=== PATIENT | female | born 1950 | race Caucasian/White ===

== ENCOUNTER 2024-12-14 13:06 | Inpatient (IN) | payer MEDICARE ==
[~2024-12-14] VITALS: Ht 167.6 cm; Wt 61.4 kg
[2024-12-14 15:41] LABS: BASOPHILS % (AUTO) 1.1 % (0.0-2.0); EOSINOPHILS % (AUTO) 0.4 % (1.0-6.0); HEMATOCRIT 46.4 % (36-46); HEMOGLOBIN 15.3 g/dL (12.0-16.0); LYMPHOCYTES # (AUTO) 2.9 K/uL (1.0-4.8); LYMPHOCYTES % (AUTO) 28.1 % (22.0-44.0); MEAN CORPUSCULAR HEMOGLOBIN 28.3 pg (26.0-34.0); MEAN CORPUSCULAR HGB CONC 33.1 G/dL (31.0-37.0); MEAN CORPUSCULAR VOLUME 86 fL (80-100); MONOCYTES # (AUTO) 0.7 K/uL (0.1-1.0); MONOCYTES % (AUTO) 6.4 % (2.0-9.0); NEUTROPHILS # (AUTO) 6.6 K/uL (1.8-7.7); PLATELET COUNT (AUTO) 285 K/uL (150-450); RED BLOOD CELL COUNT(AUTO) 5.42 MIL/uL (4.00-5.20); RED CELL DISTRIBUTION WIDTH 14.2 % (11.5-14.5); WHITE BLOOD COUNT (AUTO) 10.3 K/uL (4.5-11.0)
[2024-12-14 15:48] LABS: APPEARANCE,URINE CLEAR (CLEAR); BILIRUBIN,URINE NEGATIVE (NEGATIVE); COLOR,URINE YELLOW (YELLOW); GLUCOSE, URINE (UA) NEGATIVE (NEGATIVE); KETONES,URINE NEGATIVE (NEGATIVE); LEUKOCYTE ESTERASE ,URINE NEGATIVE (NEGATIVE); NITRATE,URINE NEGATIVE (NEGATIVE); OCCULT BLOOD,URINE NEGATIVE (NEGATIVE); PH,URINE 6.5 (5.0-8.0); PH,URINE DRUG SCREEN 6.5 (5.0-8.0); PROTEIN,URINE TRACE mg/dL (NEGATIVE); SPECIFIC GRAVITIY, URINE 1.027 (1.003-1.030); UROBILINOGEN,URINE <=1.0 mg/dL (<=1.0)
[2024-12-14 15:56] LABS: ALCOHOL, URINE DRUG SCREEN NEGATIVE (NEGATIVE); AMPHET/METH SCREEN,URINE NEGATIVE (NEGATIVE); BARBITURATE SCREEN, URINE NEGATIVE (NEGATIVE); BENZODIAZEPINES SCREEN,URINE NEGATIVE (NEGATIVE); CANNABINOID SCREEN,URINE NEGATIVE (NEGATIVE); COCAINE SCREEN,URINE NEGATIVE (NEGATIVE); METHADONE SCREEN, URINE NEGATIVE (NEGATIVE); OPIATE SCREEN,URINE NEGATIVE (NEGATIVE); PHENCYCLIDINE SCREEN,URINE NEGATIVE (NEGATIVE)
[2024-12-14 15:59] LABS: ANION GAP 11 mmol/L (8-16); CALCIUM, TOTAL 9.4 mg/dL (8.8-10.5); CARBON DIOXIDE 26 mmol/L (22-29); CHLORIDE 107 mmol/L (98-107); CREATININE 0.53 mg/dL (0.60-1.30); GLOMERULAR FILTR. RATE CALC > 60 mL/min (>60); GLUCOSE,RANDOM 79 mg/dL (70-110); POTASSIUM 4.2 mmol/L (3.5-5.1); SODIUM SERUM 144 mmol/L (136-145); UREA NITROGEN, BLOOD 22 mg/dL (7-18)
[2024-12-14 16:00] LABS: ALCOHOL, BLOOD (SERUM) < 3 mg/dL (0-10)
[2024-12-14] MEDS: DiphenhydrAMINE HCL 50 MG/ML VIAL IM ONE (19:41)
[2024-12-14] MEDS: LORazepam 2 MG/ML VIAL IM ONE (19:41)
[2024-12-14] MEDS: HALOPERIDOL LACTATE 5 MG/ML VIAL IM ONE (19:43)
[2024-12-14] MEDS ORDERED: LORazepam 2 MG TABLET PO PRN (21:00)
[2024-12-14] MEDS ORDERED: ZOLPIDEM TARTRATE 10 MG TABLET PO PRN (21:00)
[2024-12-14] MEDS ORDERED: QUEtiapine FUMARATE 100 MG TABLET PO PRN (21:00)
[2024-12-14 21:27] LABS: COVID AG,FIA SOURCE NASAL SWAB
[2024-12-14 21:48] LABS: SARS-COV2 (COVID) ANTIGEN,FIA Negative (Negative)
[2024-12-15] MEDS ORDERED: INSU100I47 SQ (09:22)
[2024-12-15] MEDS ORDERED: CLON0.5T4 PO (09:22)
[2024-12-15] MEDS ORDERED: DIVA-85 PO (09:22)
[2024-12-15] MEDS ORDERED: QUET25TA36 PO (09:22)
[2024-12-15] MEDS ORDERED: METF-1211 PO (09:22)
[2024-12-15 09:40] LABS: GLUCOMETER DEV NAME(LOC) ER.7; GLUCOSE,POINT OF CARE 93 MG/DL (70-110)
[2024-12-15 14:01] VITALS: BP 102/60; PULSE 70; RESP 18; TEMP 98.4; O2SAT 96
[2024-12-16 08:37] VITALS: BP 113/60; PULSE 72; RESP 17; TEMP 97.5; O2SAT 95
[2024-12-16] MEDS: DIVALPROEX SODIUM 250 MG ER TABLET PO SCH (11:15)
[2024-12-16] MEDS: QUEtiapine FUMARATE 100 MG TABLET PO SCH (11:15)
[2024-12-16] MEDS: ClonazePAM 0.5 MG TABLET PO SCH (20:39)
[2024-12-16 21:20] VITALS: RESP 17; TEMP 97.8
[2024-12-17] MEDS: INFLUENZA VIRUS VACCINE TVS (6MO+) 2024-25/PF 45 MCG/0.5 ML SYRINGE IM. ONE (09:23)
[2024-12-17 10:55] VITALS: BP 109/75; PULSE 73; RESP 18; TEMP 98
[2024-12-17 19:31] VITALS: BP 113/66; PULSE 106; RESP 19; TEMP 97.2; O2SAT 87
[2024-12-17] MEDS: QUEtiapine FUMARATE 200 MG TABLET PO SCH (21:00)
[2024-12-17 21:05] LABS: GLUCOMETER DEV NAME(LOC) BV2X.3; GLUCOSE,POINT OF CARE 143 MG/DL (70-110)
[2024-12-18] VITALS (9 sets, daily range): BP systolic 117–130; BP diastolic 56–70; PULSE 63–83; RESP 16–18; TEMP 97.5–98.2; O2SAT 95–99
[2024-12-18] MEDS: MetFORMIN HCL 500 MG TABLET PO SCH (06:27)
[2024-12-18] MEDS: QUEtiapine FUMARATE 100 MG TABLET PO SCH (09:00)
[2024-12-18] MEDS: LACTULOSE 20 GM/30 ML SOLUTION UDCUP PO SCH (09:00)
[2024-12-18] MEDS: MULTIVITAMINS WITH MINERALS, THERAPEUTIC TABLET PO SCH (09:00)
[2024-12-19 08:15] VITALS: BP 106/54; PULSE 81; RESP 16; TEMP 91.2; O2SAT 96
[2024-12-19 20:00] VITALS: BP 108/60; PULSE 68; RESP 18; TEMP 97.2; O2SAT 95
[2024-12-19 21:56] VITALS: BP 108/60; PULSE 68; RESP 18; TEMP 97.2; O2SAT 95
[2024-12-20 08:37] VITALS: BP 110/61; PULSE 61; RESP 16; TEMP 97.4; O2SAT 98
[2024-12-20 13:24] VITALS: BP 102/60; PULSE 72; RESP 17; TEMP 97.3
[2024-12-20 21:15] VITALS: RESP 18
[2024-12-21 08:31] VITALS: BP 113/58; PULSE 94; RESP 19; TEMP 97.9; O2SAT 96
[2024-12-21] MEDS: HALOPERIDOL LACTATE 5 MG/ML VIAL IM PRN (10:07)
[2024-12-21 20:00] VITALS: BP 100/60; PULSE 79; RESP 17; TEMP 97.5; O2SAT 98
[2024-12-21 20:17] VITALS: BP 100/60; PULSE 79; RESP 17; TEMP 97.5; O2SAT 98
[2024-12-21 22:00] VITALS: BP 140/86; PULSE 96; RESP 19; TEMP 97.6; O2SAT 97
[2024-12-21 23:55] VITALS: RESP 18
[2024-12-22 08:35] VITALS: BP 130/71; PULSE 89; RESP 18; TEMP 98; O2SAT 96
[2024-12-22 18:13] VITALS: BP 106/56; PULSE 84; RESP 18; TEMP 97.2; O2SAT 98
[2024-12-22 20:48] VITALS: BP 118/59; PULSE 86; RESP 19; TEMP 97.9; O2SAT 99
[2024-12-22 21:03] VITALS: RESP 18
[2024-12-23 08:29] VITALS: BP 101/62; PULSE 70; RESP 17; TEMP 97.4; O2SAT 95
[2024-12-23 11:50] VITALS: RESP 18
[2024-12-23 20:26] VITALS: BP 131/68; PULSE 67; RESP 16; TEMP 97.9; O2SAT 95
[2024-12-24 08:23] VITALS: BP 108/62; PULSE 65; RESP 16; TEMP 97.5; O2SAT 97
[2024-12-24] MEDS: HALOPERIDOL LACTATE 5 MG/ML VIAL IM PRN (20:42)
[2024-12-24 20:53] VITALS: BP 104/65; PULSE 86; RESP 18; TEMP 98.7; O2SAT 95
[2024-12-25 08:28] VITALS: RESP 17; TEMP 91.9
[2024-12-25 22:50] VITALS: RESP 18
[2024-12-26 16:46] VITALS: BP 144/70; PULSE 75; RESP 18; TEMP 97.5; O2SAT 97
[2024-12-26 20:26] VITALS: BP 116/76; PULSE 98; RESP 18; TEMP 97.2; O2SAT 98
[2024-12-27 08:30] VITALS: BP 140/80; PULSE 84; RESP 17; TEMP 97.3; O2SAT 98
[2024-12-27 20:26] VITALS: BP 124/63; PULSE 96; RESP 18; TEMP 97.3; O2SAT 96
[2024-12-28 08:30] VITALS: BP 110/60; PULSE 69; RESP 17; TEMP 97.7; O2SAT 98
[2024-12-29 08:35] VITALS: BP 106/61; PULSE 70; RESP 17; TEMP 97.5; O2SAT 98
[2024-12-29 20:00] VITALS: BP 107/60; PULSE 103; RESP 17; TEMP 97.4; O2SAT 98
[2024-12-30 08:57] VITALS: BP 118/59; PULSE 62; RESP 16; TEMP 97.3; O2SAT 99
[2024-12-30 09:15] VITALS: BP 118/62; PULSE 64; RESP 16; O2SAT 98
[2024-12-30 20:46] VITALS: RESP 18
[2024-12-31 08:30] VITALS: BP 114/56; PULSE 64; RESP 16; TEMP 97.6; O2SAT 98
[2024-12-31 22:55] VITALS: RESP 16
[2025-01-01 08:15] VITALS: BP 109/47; PULSE 75; RESP 16; TEMP 98; O2SAT 97
[2025-01-01 20:20] VITALS: BP 112/61; PULSE 68; RESP 18; TEMP 97.9
[2025-01-02 10:05] VITALS: BP 152/77; PULSE 99; RESP 18; O2SAT 100
[2025-01-02 13:24] VITALS: RESP 18
== END 2025-01-02 21:30 | disposition short-term general hospital (02) | DRG 885 ==
LOC: EMS 13:06 → B2X 12-15 08:54
PROVIDERS: ADMIT Psychiatry & Neurology Psychiatry; ATTEND Psychiatry & Neurology Psychiatry
PROC: GZHZZZZ Group Psychotherapy (ICD-10-PCS; principal; 2024-12-16)
DX: F20.0 Paranoid schizophrenia (principal); N39.0 Urinary tract infection, site not specified; I10 Essential (primary) hypertension; K21.9 Gastro-esophageal reflux disease without esophagitis; G47.00 Insomnia, unspecified; Z20.822 Contact with and (suspected) exposure to COVID-19; F41.9 Anxiety disorder, unspecified; K59.00 Constipation, unspecified; E11.9 Type 2 diabetes mellitus without complications; E86.0 Dehydration; Z79.899 Other long term (current) drug therapy
CPT/HCPCS: 80048; 80307; 81003; 82962; 85025; 87081; 99285; G0480; J1200; J1630; J2060

== ENCOUNTER 2025-01-02 11:35 | Inpatient (IN) | payer MEDICARE ==
[~2025-01-02] VITALS: Ht 167.6 cm; Wt 58.4 kg
[~2025-01-02 11:35] MED LIST: CLON0.5T4 PO; DIVA-85 PO; INSU100I47 SQ; METF-1211 PO; QUET25TA36 PO
[2025-01-02 13:05] LABS: ANION GAP 9 mmol/L (8-16); CALCIUM, TOTAL 9.8 mg/dL (8.8-10.5); CARBON DIOXIDE 29 mmol/L (22-29); CHLORIDE 103 mmol/L (98-107); CREATININE 0.65 mg/dL (0.60-1.30); GLOMERULAR FILTR. RATE CALC > 60 mL/min (>60); GLUCOSE,RANDOM 107 mg/dL (70-110); POTASSIUM 4.5 mmol/L (3.5-5.1); SODIUM SERUM 141 mmol/L (136-145); UREA NITROGEN, BLOOD 29 mg/dL (7-18)
[2025-01-02 13:14] LABS: BASOPHILS % (AUTO) 0.6 % (0.0-2.0); EOSINOPHILS % (AUTO) 0.1 % (1.0-6.0); HEMATOCRIT 46.4 % (36-46); HEMOGLOBIN 15.4 g/dL (12.0-16.0); LYMPHOCYTES # (AUTO) 2.8 K/uL (1.0-4.8); LYMPHOCYTES % (AUTO) 17.2 % (22.0-44.0); MEAN CORPUSCULAR HEMOGLOBIN 28.7 pg (26.0-34.0); MEAN CORPUSCULAR HGB CONC 33.1 G/dL (31.0-37.0); MEAN CORPUSCULAR VOLUME 87 fL (80-100); MONOCYTES # (AUTO) 1.1 K/uL (0.1-1.0); MONOCYTES % (AUTO) 6.8 % (2.0-9.0); NEUTROPHILS # (AUTO) 12.4 K/uL (1.8-7.7); NEUTROPHILS % (AUTO) 75.3 % (40.0-70.0); PLATELET COUNT (AUTO) 397 K/uL (150-450); RED BLOOD CELL COUNT(AUTO) 5.34 MIL/uL (4.00-5.20); WHITE BLOOD COUNT (AUTO) 16.5 K/uL (4.5-11.0)
[2025-01-02 13:43] LABS: ALCOHOL, BLOOD (SERUM) < 3 mg/dL (0-10)
[2025-01-02 15:55] LABS: APPEARANCE,URINE CLEAR (CLEAR); BILIRUBIN,URINE NEGATIVE (NEGATIVE); COLOR,URINE YELLOW (YELLOW); GLUCOSE, URINE (UA) NEGATIVE (NEGATIVE); KETONES,URINE NEGATIVE (NEGATIVE); LEUKOCYTE ESTERASE ,URINE SMALL (NEGATIVE); NITRATE,URINE NEGATIVE (NEGATIVE); OCCULT BLOOD,URINE NEGATIVE (NEGATIVE); PH,URINE 5.5 (5.0-8.0); PH,URINE DRUG SCREEN 5.5 (5.0-8.0); PROTEIN,URINE TRACE mg/dL (NEGATIVE); SPECIFIC GRAVITIY, URINE 1.028 (1.003-1.030); UROBILINOGEN,URINE <=1.0 mg/dL (<=1.0)
[2025-01-02 16:02] LABS: ALCOHOL, URINE DRUG SCREEN NEGATIVE (NEGATIVE); AMPHET/METH SCREEN,URINE NEGATIVE (NEGATIVE); BARBITURATE SCREEN, URINE NEGATIVE (NEGATIVE); BENZODIAZEPINES SCREEN,URINE NEGATIVE (NEGATIVE); CANNABINOID SCREEN,URINE NEGATIVE (NEGATIVE); COCAINE SCREEN,URINE NEGATIVE (NEGATIVE); METHADONE SCREEN, URINE NEGATIVE (NEGATIVE); OPIATE SCREEN,URINE NEGATIVE (NEGATIVE); PHENCYCLIDINE SCREEN,URINE NEGATIVE (NEGATIVE)
[2025-01-02 16:22] LABS: BACTERIA,URINE Few /HPF (None Seen); RBC,URINE 0-2 /HPF (0-2); SQUAMOUS EPITHELIAL CELL,UR Few /LPF (None Seen)
[2025-01-02] MEDS ORDERED: CloNIDine HCL 0.1 MG TABLET PO PRN (17:45)
[2025-01-02] MEDS: CefTRIAXone 1 GM/DEXTROSE 50 ML IV ONE (19:46)
[2025-01-02 21:30] VITALS: BP 146/78; PULSE 65; RESP 18; TEMP 98.4; O2SAT 98
[2025-01-02] MEDS: HEPARIN SODIUM,PORCINE 5,000 UNITS/ML VIAL SQ SCH (23:21)
[2025-01-02] MEDS: DOCUSATE SODIUM 100 MG CAPSULE PO SCH (23:21)
[2025-01-02] MEDS: AmLODIPine BESYLATE 5 MG TABLET PO SCH (23:21)
[2025-01-03 04:29] VITALS: BP 109/69; PULSE 64; RESP 18; TEMP 97.8; O2SAT 98
[2025-01-03] MEDS: FAMOTIDINE 20 MG TABLET PO SCH (08:23)
[2025-01-03 09:04] VITALS: BP 105/50; PULSE 62; RESP 17; TEMP 97.6; O2SAT 98
[2025-01-03] MEDS: CefTRIAXone 1 GM/DEXTROSE 50 ML IV SCH (18:28)
[2025-01-03] MEDS ORDERED: SODIUM CHLORIDE 0.9% 500 ML IV ONE (18:32)
[2025-01-03 20:00] VITALS: BP 111/57; PULSE 66; RESP 18; TEMP 97.9; O2SAT 95
[2025-01-04 03:50] VITALS: BP 103/44; PULSE 55; RESP 18; TEMP 97.4; O2SAT 99
[2025-01-04 07:13] LABS: ANION GAP 5 mmol/L (8-16); CALCIUM, TOTAL 8.6 mg/dL (8.8-10.5); CARBON DIOXIDE 30 mmol/L (22-29); CHLORIDE 106 mmol/L (98-107); CREATININE 0.47 mg/dL (0.60-1.30); GLOMERULAR FILTR. RATE CALC > 60 mL/min (>60); GLUCOSE,RANDOM 79 mg/dL (70-110); POTASSIUM 4.2 mmol/L (3.5-5.1); SODIUM SERUM 141 mmol/L (136-145); UREA NITROGEN, BLOOD 19 mg/dL (7-18)
[2025-01-04 07:47] LABS: BASOPHILS % (AUTO) 0.6 % (0.0-2.0); EOSINOPHILS % (AUTO) 1.5 % (1.0-6.0); HEMATOCRIT 44.6 % (36-46); HEMOGLOBIN 14.8 g/dL (12.0-16.0); LYMPHOCYTES # (AUTO) 2.2 K/uL (1.0-4.8); LYMPHOCYTES % (AUTO) 27.6 % (22.0-44.0); MEAN CORPUSCULAR HGB CONC 33.2 G/dL (31.0-37.0); MEAN CORPUSCULAR VOLUME 87 fL (80-100); MONOCYTES # (AUTO) 0.7 K/uL (0.1-1.0); MONOCYTES % (AUTO) 8.6 % (2.0-9.0); NEUTROPHILS # (AUTO) 4.9 K/uL (1.8-7.7); NEUTROPHILS % (AUTO) 61.7 % (40.0-70.0); PLATELET COUNT (AUTO) 304 K/uL (150-450); RED BLOOD CELL COUNT(AUTO) 5.11 MIL/uL (4.00-5.20); RED CELL DISTRIBUTION WIDTH 14.1 % (11.5-14.5)
[2025-01-04] MEDS: MULTIVITAMINS WITH MINERALS, THERAPEUTIC TABLET PO SCH (11:26)
[2025-01-04] MEDS: DIVALPROEX SODIUM 250 MG DR TABLET PO SCH (15:23)
[2025-01-04] MEDS: QUEtiapine FUMARATE 100 MG TABLET PO SCH (15:23)
[2025-01-04 16:38] VITALS: BP 122/49; PULSE 59; RESP 18; TEMP 97.8; O2SAT 96
[2025-01-04 21:00] VITALS: BP 141/51; PULSE 60; RESP 18; O2SAT 97
[2025-01-04] MEDS: QUEtiapine FUMARATE 200 MG TABLET PO SCH (21:00)
[2025-01-05 06:29] VITALS: BP 123/58; PULSE 63; RESP 18; TEMP 97.5; O2SAT 98
[2025-01-05 08:00] VITALS: O2SAT 0
[2025-01-05 21:25] VITALS: BP 136/64; PULSE 52; RESP 18
[2025-01-06 05:15] VITALS: BP 119/80; PULSE 57; RESP 18; TEMP 97.8; O2SAT 97
[2025-01-06] MEDS: HALOPERIDOL LACTATE 5 MG/ML VIAL IM ONE (19:00)
[2025-01-06 19:20] VITALS: BP 102/73; PULSE 75; RESP 20; TEMP 97.5; O2SAT 97
[2025-01-07] MEDS: ACETAMINOPHEN 325 MG TABLET PO PRN (03:07)
[2025-01-07 03:37] VITALS: BP 134/74; PULSE 89; RESP 20; TEMP 97.7; O2SAT 95
[2025-01-07 07:00] LABS: GLUCOMETER DEV NAME(LOC) 6S.2; GLUCOSE,POINT OF CARE 102 MG/DL (70-110)
[2025-01-07 08:14] VITALS: BP 128/72; PULSE 92; RESP 18; TEMP 97.8; O2SAT 96
[2025-01-07 13:29] LABS: COVID AG,FIA SOURCE NASAL SWAB
[2025-01-07 14:35] LABS: SARS-COV2 (COVID) ANTIGEN,FIA Negative (Negative)
[2025-01-07 19:55] VITALS: BP 124/57; PULSE 67; RESP 18; TEMP 97.9; O2SAT 97
[2025-01-08 04:40] VITALS: BP 112/65; PULSE 61; RESP 18; TEMP 97.5; O2SAT 98
[2025-01-08] MEDS: MAGNESIUM HYDROXIDE SUSPENSION 30 ML UDCUP PO PRN (05:56)
[2025-01-08 07:24] VITALS: BP 122/68; PULSE 65; RESP 18; TEMP 97.9; O2SAT 96
[2025-01-08 15:11] VITALS: BP 126/62; PULSE 64; RESP 18; TEMP 97.6; O2SAT 97
[2025-01-08] MEDS ORDERED: SODIUM CHLORIDE 0.9% 250 ML IV ONE (20:13)
[2025-01-09 04:16] VITALS: BP 116/57; PULSE 57; RESP 18; TEMP 97.3; O2SAT 95
[2025-01-09 09:58] VITALS: BP 112/47; PULSE 51; RESP 18; TEMP 97.6; O2SAT 96
[2025-01-09 20:38] LABS: COVID AG,FIA SOURCE NASAL SWAB
[2025-01-09 20:54] LABS: SARS-COV2 (COVID) ANTIGEN,FIA Negative (Negative)
== END 2025-01-10 02:15 | DRG 91 ==
LOC: EMS 11:35 → EDH 19:30 → 6N 21:30
PROVIDERS: ADMIT Internal Medicine; ATTEND Internal Medicine
PROC: GZ56ZZZ Individual Psychotherapy, Supportive (ICD-10-PCS; principal; 2025-01-04)
DX: G92.9 Unspecified toxic encephalopathy (principal); E43 Unspecified severe protein-calorie malnutrition; N39.0 Urinary tract infection, site not specified; R64 Cachexia; E44.0 Moderate protein-calorie malnutrition; F20.0 Paranoid schizophrenia; Z20.822 Contact with and (suspected) exposure to COVID-19; I10 Essential (primary) hypertension; R62.7 Adult failure to thrive; E11.9 Type 2 diabetes mellitus without complications; Z68.20 Body mass index [BMI] 20.0-20.9, adult
CPT/HCPCS: 51701; 80048; 80164; 80307; 81001; 82962; 85025; 87086; 99285; G0480; J0696; J1630; J1644; J7040; J7050

== ENCOUNTER 2025-01-09 19:55 | Inpatient (IN) | payer MEDICARE, MEDICAID ==
[~2025-01-09] VITALS: Ht 167.6 cm; Wt 56.2 kg
[2025-01-09] MEDS ORDERED: LORazepam 2 MG TABLET PO PRN (21:45)
[2025-01-09] MEDS ORDERED: ZOLPIDEM TARTRATE 10 MG TABLET PO PRN (21:45)
[2025-01-09] MEDS ORDERED: HALOPERIDOL 5 MG TABLET PO PRN (21:45)
[2025-01-10 04:03] VITALS: BP 108/56; PULSE 64; RESP 16; TEMP 97.6; O2SAT 97
[2025-01-10] MEDS ORDERED: ACETAMINOPHEN 325 MG TABLET PO PRN (08:00)
[2025-01-10] MEDS ORDERED: ONDANSETRON 4 MG TABLET PO PRN (08:00)
[2025-01-10] MEDS ORDERED: IBUPROFEN 600 MG TABLET PO PRN (08:00)
[2025-01-10] MEDS ORDERED: BACITRACIN 28 GM OINTMENT TP PRN (08:00)
[2025-01-10] MEDS ORDERED: MAG HYDROX/ALUMINUM HYD/SIMETH ES 30 ML SUSPENSION UDCUP PO PRN (08:00)
[2025-01-10] MEDS ORDERED: BENZOCAINE/MENTHOL [CEPACOL] LOZENGE PO PRN (08:00)
[2025-01-10] MEDS ORDERED: CloNIDine HCL 0.1 MG TABLET PO PRN (08:00)
[2025-01-10] MEDS ORDERED: LOPERAMIDE HCL 2 MG CAPSULE PO PRN (08:00)
[2025-01-10] MEDS ORDERED: PETROLATUM,WHITE 28 GM JELLY TP PRN (08:00)
[2025-01-10] MEDS ORDERED: ALBUTEROL SULFATE HFA 90 MCG/PUFF 8 GM INHALER IH PRN (08:00)
[2025-01-10] MEDS ORDERED: DOCUSATE SODIUM 100 MG CAPSULE PO PRN (08:00)
[2025-01-10] MEDS ORDERED: OMEPRAZOLE 20 MG CAPSULE PO PRN (08:00)
[2025-01-10 13:47] VITALS: RESP 18
[2025-01-10 20:12] VITALS: BP 103/61; PULSE 68; RESP 16; TEMP 98; O2SAT 97
[2025-01-11 09:13] LABS: HEMOGLOBIN A1C 5.2 % (3.8-5.6)
[2025-01-11 09:31] LABS: CHOL/HDL RATIO 3.4 (3.9-5.7); THYROID STIMULATING HORMONE 0.96 uIU/mL (0.36-3.74)
[2025-01-11] MEDS: RisperiDONE 1 MG TABLET PO SCH (17:00)
[2025-01-11 20:54] VITALS: BP 94/61; PULSE 66; RESP 18; TEMP 97.8; O2SAT 96
[2025-01-12 09:00] VITALS: RESP 18
[2025-01-12 20:05] VITALS: RESP 18
[2025-01-13 08:12] VITALS: BP 103/60; PULSE 64; RESP 17; TEMP 97.8; O2SAT 98
[2025-01-13 20:10] VITALS: BP 104/55; PULSE 62; RESP 16; TEMP 98.2; O2SAT 97
[2025-01-14] MEDS: HALOPERIDOL LACTATE 5 MG/ML VIAL IM PRN (01:12)
[2025-01-14 08:08] VITALS: BP 134/63; PULSE 70; RESP 16; TEMP 97.7; O2SAT 96
[2025-01-14] MEDS: MIRTAZAPINE 15 MG TABLET PO SCH (21:00)
[2025-01-15] MEDS: LORazepam 2 MG/ML VIAL IM ONE (11:46)
[2025-01-15] MEDS: DiphenhydrAMINE HCL 50 MG/ML VIAL IM ONE (11:48)
[2025-01-15] MEDS: HALOPERIDOL LACTATE 5 MG/ML VIAL IM ONE (11:48)
[2025-01-15 20:00] VITALS: BP 132/56; PULSE 70; RESP 18; TEMP 97.7; O2SAT 97
[2025-01-16 08:13] VITALS: TEMP 97.7
[2025-01-16 23:01] VITALS: PULSE 78; RESP 18; TEMP 98.6
[2025-01-17 08:31] VITALS: RESP 16
[2025-01-18 08:06] VITALS: BP 149/61; PULSE 72; RESP 17; TEMP 97.2; O2SAT 98
[2025-01-20 20:40] VITALS: BP 137/61; PULSE 71; RESP 16; RESP 17; TEMP 97.3; O2SAT 96
[2025-01-20 20:55] VITALS: BP 133/59; PULSE 71; RESP 17; TEMP 96.9; O2SAT 97
[2025-01-22 08:05] VITALS: BP 121/52; PULSE 76; RESP 18; TEMP 97.1; O2SAT 96
[2025-01-22 20:32] VITALS: RESP 18; TEMP 97.8
[2025-01-23 09:45] VITALS: RESP 20
[2025-01-23] MEDS: HALOPERIDOL LACTATE 5 MG/ML VIAL IM PRN (18:16)
[2025-01-24 08:15] VITALS: RESP 16
[2025-01-26 08:25] VITALS: RESP 18
[2025-01-26] MEDS: RisperiDONE 2 MG TABLET PO SCH (17:00)
[2025-01-26 20:03] VITALS: BP 107/62; PULSE 83; RESP 17; TEMP 98.1; O2SAT 95
[2025-01-27 09:19] VITALS: RESP 16
[2025-01-27 20:14] VITALS: RESP 16
[2025-01-28 08:09] VITALS: RESP 17
[2025-01-28] MEDS: MULTIVITAMINS WITH MINERALS, THERAPEUTIC TABLET PO SCH (09:00)
[2025-01-29 08:49] VITALS: PULSE 85; RESP 16; TEMP 97.2; O2SAT 97
[2025-01-30 08:41] VITALS: RESP 17
[2025-01-30 20:17] VITALS: BP 130/69; PULSE 91; RESP 18; TEMP 98.1; O2SAT 97
[2025-01-31 08:16] VITALS: BP 127/54; PULSE 81; RESP 18; TEMP 97.4; O2SAT 98
[2025-02-01 08:08] VITALS: BP 136/60; PULSE 60; RESP 16; TEMP 97.7; O2SAT 96
[2025-02-01 20:04] VITALS: RESP 17
[2025-02-02 08:02] VITALS: RESP 16
[2025-02-02 20:22] VITALS: RESP 19
[2025-02-03 08:17] VITALS: BP 129/60; PULSE 66; RESP 16; TEMP 97.6; O2SAT 96
[2025-02-03] MEDS: RisperiDONE 2 MG TABLET PO SCH (17:15)
[2025-02-03 20:28] VITALS: RESP 17
[2025-02-04 08:39] VITALS: BP 139/61; PULSE 69; RESP 18; TEMP 97.9; O2SAT 97
[2025-02-04 20:13] VITALS: RESP 16; TEMP 98.2
[2025-02-05 08:37] VITALS: BP 140/64; PULSE 82; RESP 16; TEMP 97.6
[2025-02-05 21:00] VITALS: RESP 18; TEMP 97.8
[2025-02-06 08:00] VITALS: PULSE 87; RESP 16; TEMP 97.5
[2025-02-06 20:11] VITALS: RESP 16; TEMP 97.2
[2025-02-07 07:47] VITALS: BP 139/60; PULSE 72; RESP 17; TEMP 97.1; O2SAT 98
[2025-02-07 20:07] VITALS: BP 129/74; PULSE 78; RESP 16; TEMP 97.7
[2025-02-08 08:06] VITALS: BP 129/61; PULSE 77; RESP 16; TEMP 98.2; O2SAT 99
[2025-02-08] MEDS ORDERED: TUBERCULIN, PURIFIED PROTEIN DERIVATIVE 5 TU/0.1 ML SYRINGE ID ONE (09:30)
[2025-02-08] MEDS: TUBERCULIN, PURIFIED PROTEIN DERIVATIVE 5 TU/0.1 ML SYRINGE ID ONE (15:48)
[2025-02-08] MEDS ORDERED: LORazepam 2 MG/ML VIAL ONE (17:23)
[2025-02-08] MEDS ORDERED: DiphenhydrAMINE HCL 50 MG/ML VIAL ONE (17:24)
[2025-02-08] MEDS: DiphenhydrAMINE HCL 50 MG/ML VIAL IM ONE (17:54)
[2025-02-08] MEDS: LORazepam 2 MG/ML VIAL IM ONE (17:54)
[2025-02-08] MEDS: HALOPERIDOL LACTATE 5 MG/ML VIAL IM ONE (17:54)
[2025-02-08 20:12] VITALS: BP 116/56; PULSE 100; RESP 18; TEMP 97.7
[2025-02-08] MEDS ORDERED: HALOPERIDOL LACTATE 5 MG/ML VIAL IM SCH (21:00)
[2025-02-09 08:03] VITALS: BP 110/70; PULSE 69; RESP 16; TEMP 97.3; O2SAT 100
[2025-02-09 20:04] VITALS: BP 113/56; PULSE 79; RESP 18; TEMP 97.8; O2SAT 100
[2025-02-10 08:18] VITALS: BP 111/60; PULSE 64; RESP 17; TEMP 97.7; O2SAT 96
[2025-02-10 08:20] VITALS: BP 111/60; PULSE 64; RESP 17; TEMP 97.7; O2SAT 96
[2025-02-10 20:00] VITALS: RESP 16
[2025-02-11 08:27] VITALS: BP 124/60; PULSE 67; RESP 17; TEMP 97.2; O2SAT 98
[2025-02-11 20:28] VITALS: BP 115/61; PULSE 62; RESP 18; TEMP 97.2; O2SAT 99
[2025-02-12 08:33] VITALS: BP 150/75; PULSE 69; RESP 18; TEMP 97.7; O2SAT 97
[2025-02-12 20:07] VITALS: BP 141/79; PULSE 104; RESP 18; TEMP 97.9; O2SAT 96
[2025-02-12 22:18] VITALS: BP 159/56; PULSE 120; RESP 20; TEMP 96.4; O2SAT 97
[2025-02-13 02:15] VITALS: BP 136/54; PULSE 100; RESP 16; TEMP 96.2; O2SAT 96
[2025-02-13 03:30] VITALS: BP 123/53; RESP 16; O2SAT 96
[2025-02-13 14:00] VITALS: RESP 17
[2025-02-13] MEDS: CIPROFLOXACIN HCL 500 MG TABLET PO SCH (17:00)
[2025-02-13 20:05] VITALS: RESP 18
[2025-02-13] MEDS: HALOPERIDOL LACTATE 5 MG/ML VIAL IM PRN (20:27)
[2025-02-14 08:11] VITALS: BP 108/51; PULSE 69; RESP 16; TEMP 98.4; O2SAT 98
[2025-02-14] MEDS: MAGNESIUM HYDROXIDE SUSPENSION 30 ML UDCUP PO PRN (08:43)
[2025-02-14 20:32] VITALS: BP 100/61; PULSE 96; RESP 16; TEMP 98.1; O2SAT 98
[2025-02-14] MEDS ORDERED: ZOLPIDEM TARTRATE 5 MG TABLET PO PRN (20:45)
[2025-02-15 08:26] VITALS: BP 124/58; PULSE 88; RESP 17; TEMP 97; O2SAT 100
[2025-02-15 20:00] VITALS: BP 107/52; PULSE 75; RESP 18; TEMP 97.5; O2SAT 95
[2025-02-16 08:39] VITALS: BP 110/60; PULSE 68; RESP 17; TEMP 97.1; O2SAT 97
[2025-02-17 08:36] VITALS: RESP 16
[2025-02-17 14:00] VITALS: TEMP 98.1
[2025-02-17 19:38] VITALS: TEMP 97.9
[2025-02-17 20:31] VITALS: RESP 18
[2025-02-17 22:29] VITALS: TEMP 97.3
[2025-02-18] VITALS (10 sets, daily range): RESP 16; TEMP 97.3–98.4
[2025-02-18 08:18] LABS: BASOPHILS % (AUTO) 0.7 % (0.0-2.0); EOSINOPHILS % (AUTO) 2.1 % (1.0-6.0); HEMOGLOBIN 13.3 g/dL (12.0-16.0); LYMPHOCYTES # (AUTO) 2.3 K/uL (1.0-4.8); LYMPHOCYTES % (AUTO) 39.3 % (22.0-44.0); MEAN CORPUSCULAR HEMOGLOBIN 30.3 pg (26.0-34.0); MEAN CORPUSCULAR HGB CONC 34.1 G/dL (31.0-37.0); MEAN CORPUSCULAR VOLUME 89 fL (80-100); MONOCYTES # (AUTO) 0.5 K/uL (0.1-1.0); MONOCYTES % (AUTO) 8.7 % (2.0-9.0); NEUTROPHILS # (AUTO) 2.9 K/uL (1.8-7.7); NEUTROPHILS % (AUTO) 49.2 % (40.0-70.0); PLATELET COUNT (AUTO) 255 K/uL (150-450); RED BLOOD CELL COUNT(AUTO) 4.38 MIL/uL (4.00-5.20); RED CELL DISTRIBUTION WIDTH 13.7 % (11.5-14.5); WHITE BLOOD COUNT (AUTO) 5.8 K/uL (4.5-11.0)
[2025-02-18 08:42] LABS: ALANINE AMINOTRANSFERASE 19 U/L (12-78); ALBUMIN 2.5 g/dL (3.4-5.0); ALKALINE PHOSPHATASE 78 U/L (46-116); ANION GAP 4 mmol/L (8-16); ASPARTATE AMINOTRANSFERASE 15 U/L (15-37); BILIRUBIN,TOTAL 0.3 mg/dL (0.1-1.0); CALCIUM, TOTAL 8.6 mg/dL (8.8-10.5); CARBON DIOXIDE 29 mmol/L (22-29); CHLORIDE 106 mmol/L (98-107); GLOMERULAR FILTR. RATE CALC > 60 mL/min (>60); GLUCOSE,RANDOM 82 mg/dL (70-110); POTASSIUM 4.5 mmol/L (3.5-5.1); SODIUM SERUM 139 mmol/L (136-145); TOTAL PROTEIN, SERUM 5.7 g/dL (6.4-8.2); UREA NITROGEN, BLOOD 16 mg/dL (7-18)
[2025-02-19] VITALS (7 sets, daily range): BP systolic 110–127; BP diastolic 51–70; PULSE 85–86; RESP 17–18; TEMP 97.1–98.1; O2SAT 97
[2025-02-20] VITALS (8 sets, daily range): BP systolic 172; BP diastolic 83; PULSE 78; RESP 17–18; TEMP 97.2–97.7; O2SAT 97
[2025-02-21] VITALS (8 sets, daily range): RESP 18; TEMP 96.9–98.4
[2025-02-22 02:17] VITALS: TEMP 97.9
[2025-02-22 06:03] VITALS: TEMP 98.2
[2025-02-22 08:18] VITALS: BP 124/58; PULSE 61; RESP 18; TEMP 97.8; O2SAT 98
[2025-02-22 10:24] VITALS: TEMP 97.2
[2025-02-22 20:00] VITALS: RESP 15; TEMP 98.6
[2025-02-23 11:44] VITALS: RESP 20
[2025-02-23 20:13] VITALS: BP 117/60; PULSE 82; RESP 17; TEMP 98.2; O2SAT 95
[2025-02-24 09:58] LABS: APPEARANCE,URINE CLEAR (CLEAR); BILIRUBIN,URINE NEGATIVE (NEGATIVE); COLOR,URINE YELLOW (YELLOW); GLUCOSE, URINE (UA) NEGATIVE (NEGATIVE); KETONES,URINE NEGATIVE (NEGATIVE); LEUKOCYTE ESTERASE ,URINE NEGATIVE (NEGATIVE); NITRATE,URINE NEGATIVE (NEGATIVE); OCCULT BLOOD,URINE NEGATIVE (NEGATIVE); PROTEIN,URINE NEGATIVE (NEGATIVE); SPECIFIC GRAVITIY, URINE 1.026 (1.003-1.030); UROBILINOGEN,URINE <=1.0 mg/dL (<=1.0)
[2025-02-24 11:31] LABS: GLUCOMETER DEV NAME(LOC) POC.BV; POC SARS-COV2 AG, FIA NEGATIVE (NEGATIVE)
[2025-02-24] MEDS ORDERED: RISP-32 PO (12:00)
[2025-02-24] MEDS ORDERED: MIRT-89 PO (12:01)
== END 2025-02-24 14:34 | DRG 885 ==
LOC: B2X 01-10 01:12
PROVIDERS: ADMIT Psychiatry & Neurology Psychiatry; ATTEND Psychiatry & Neurology Psychiatry
PROC: GZHZZZZ Group Psychotherapy (ICD-10-PCS; principal; 2025-01-11)
PROC: GZ52ZZZ Individual Psychotherapy, Cognitive (ICD-10-PCS; 2025-01-11)
DX: F20.0 Paranoid schizophrenia (principal); G47.00 Insomnia, unspecified; I10 Essential (primary) hypertension; Z20.822 Contact with and (suspected) exposure to COVID-19; F41.9 Anxiety disorder, unspecified; K21.9 Gastro-esophageal reflux disease without esophagitis; K59.00 Constipation, unspecified; F94.0 Selective mutism; Z79.899 Other long term (current) drug therapy
CPT/HCPCS: 80053; 80061; 81003; 83036; 84443; 85025; 87081; J1200; J1630; J2060